=== PATIENT | male | born 1980 | race African-American/Black ===

== ENCOUNTER 2019-06-26 03:52 | Emergency (ER) | payer MEDICAID ==
[~2019-06-26] VITALS: Ht 188 cm; Wt 77.1 kg
--- NOTE | 2019-06-26 04:09 | NUR ---
ED Nurse Note: pt presents to ED c/o shaking and tremors. pt reports that he took 2 x 5mg of melatonin and a norco that had been prescribed to him several years ago from a shoulder injury. pt states that he is worried that he will fall asleep and not wake up. he is reporting shaking and tremors. pt states he took the meds around 0100 this morning
[2019-06-26 04:11] VITALS: BP 135/82
--- NOTE | 2019-06-26 04:22 | Emergency Room Report ---
History of Present Illness General Chief Complaint: General Complaint Source: Patient Present Illness HPI 38-year-old male presents with acute ingestion of Dixmont 5 mg with 10 mg of melatonin, since then he has been feeling like if he were to go to sleep he will wake up severity is moderate, constant he denies any chest pain or shortness of breath no family history of cardiac disease patient feels nausea and is very worried that if he were to close his eyes he would not wake up. Patient states he is also a little shaky he is worried about the drug to drug interaction. He ingested the Dixmont and melatonin at approximately 1 AM Allergies: Coded Allergies: POLLEN EXTRACTS (Verified Allergy, Unknown, 06/26/19) Patient History Past Medical History: see triage record Reviewed Nursing Documentation: PMH: Agreed; PSxH: Agreed Nursing Documentation-PMH Past Medical History: No Stated History Review of Systems All Other Systems: negative except mentioned in HPI Physical Exam Vital Signs Date Time Temp Pulse Resp B/P (MAP) Pulse Ox O2 Delivery O2 Flow Rate FiO2 06/26/19 03:57 97.3 62 16 135/82 (99) 96 Room Air Sp02 EP Interpretation: reviewed, normal General Appearance: well appearing, no apparent distress, alert Head: normocephalic, atraumatic Eyes: bilateral eye PERRL, bilateral eye EOMI ENT: uvula midline, moist mucus membranes Neck: supple, thyroid normal, supple/symm/no masses Respiratory: lungs clear, no respiratory distress, no retraction, no accessory muscle use Cardiovascular #1: normal peripheral pulses, regular rate, rhythm, no edema, no gallop, no murmur Gastrointestinal: non tender, soft, no guarding, no rebound Musculoskeletal: normal inspection Neurologic: alert, oriented x3 Psychiatric: anxious Skin: no rash, warm/dry Medical Decision Making Diagnostic Impression: Primary Impression: Drug-drug interaction ER Course 38-year-old male presents with most likely a drug to drug interaction between melatonin and Dixmont, with ingestion approximately at 1 AM, no acute indications for reversal, patient shows no signs of respiratory depression, additionally patient was counseled that we would be more than willing to place him on the hollock maker for monitoring and if patient want to close his eyes and fall asleep to make sure he does not during that episode patient refused stating that you are not doing anything for me. I stated that we can place him on the hollock maker to make sure that if he were to close his eyes nothing would happen. Counseled patient patient states he does not want to do that additionally patient states he want something for the nausea associated with the Dixmont. Patient was offered Zofran. Patient was observed for an hour without any acute processes occurring patient was reassured patient most likely had a drug interaction Disposition home with return precautions Last Vital Signs Date Time Temp Pulse Resp B/P (MAP) Pulse Ox O2 Delivery O2 Flow Rate FiO2 06/26/19 04:11 62 16 Room Air 06/26/19 04:11 97.3 135/82 96 Disposition: HOME, SELF-CARE Condition: Stable Referrals: [facility] Patient Instructions: Drug Toxicity Additional Instructions: The patient was provided with discharge instructions, notified to follow-up with a primary care doctor and or specialist in the next 24-48 hours, and to return to the ED if they have worsening of their symptoms. Please note that this report is being documented using [employer] technology. This can lead to erroneous entry secondary to incorrect interpretation by the dictating instrument. Leo Zarate MD Jun 26, 2019 04:22
[2019-06-26] MEDS ORDERED: Ondansetron ODT 8mg tab ORAL ONE (04:30)
--- NOTE | 2019-06-26 04:40 | NUR ---
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 will continue to closely watch pt
[2019-06-26 05:20] VITALS: BP 143/83
--- NOTE | 2019-06-26 05:20 | NUR ---
ER DISCHARGE NOTE: Patient is cleared to be discharged per ERMD, pt is aox4, on room air, with stable vital signs. pt and mother were given dc instructions, both verbalized understanding of teachings. pt id band removed without complications. pt is able to ambulate with steady gait. pt took all belongings.
[2019-06-28] MEDS ORDERED: ZITHROMAX250 MG ORAL (16:40)
[2019-06-28] MEDS ORDERED: VENTOLIN HFA18 GM INH (16:40)
[2019-06-28] MEDS ORDERED: TAMIFLU75 MG ORAL (16:40)
[2019-06-28] MEDS ORDERED: GUAIFENESI100 MG/5 M ORAL (16:40)
== END 2019-06-26 05:20 | disposition home or self-care (01) ==
LOC: EMR 04:03
DX: F41.9 Anxiety disorder, unspecified (principal); T39.1X5A Adverse effect of 4-Aminophenol derivatives, initial encounter; T45.0X5A Adverse effect of antiallergic and antiemetic drugs, initial encounter; Y92.9 Unspecified place or not applicable; Z91.09 Other allergy status, other than to drugs and biological substances
CPT/HCPCS: Q0162; Z7502; 99282

== ENCOUNTER → 2019-06-28 | Emergency (ER) | payer MEDICAID, OTHER ==
[~2019-06-28] VITALS: Ht 188 cm; Wt 105.2 kg
[~2019-06-28] MED LIST: GUAIFENESI100 MG/5 M ORAL; PREDNISONE20 MG ORAL; TAMIFLU75 MG ORAL; VENTOLIN HFA18 GM INH; ZITHROMAX250 MG ORAL
--- NOTE | 2019-06-28 16:28 | NUR ---
ED Nurse Note: pt. came with flu like symptoms chest congestion since yesterday, temp 101.5. Placed on chair. VSS, on RA.
--- NOTE | 2019-06-28 16:39 | Emergency Room Report ---
History of Present Illness General Chief Complaint: Flu Like Symptoms Source: Patient Present Illness HPI 38-year-old male with no significant past medical history here complaining of 1 day of body aches, fever and chills, and minor cough. Complains of minimal abdominal pain and few bouts of nonbloody diarrhea and feeling nauseated however denies vomiting. Denies blood in stool. Denies recent travel. Patient appears to have a temperature of 101 F. Also complains of 1 month of intermittent cough and congestion as well as wheezing and feeling like he hears crackling in his chest. Denies tobacco smoke, weeping, and marijuana use. Has not taken medication for symptom relief. Chest pain, shortness of breath, palpitation, headache and dizziness Allergies: Coded Allergies: POLLEN EXTRACTS (Verified Allergy, Unknown, 06/26/19) Patient History Past Medical History: see triage record Past Surgical History: unable to obtain Pertinent Family History: none Immunizations: UTD Reviewed Nursing Documentation: PMH: Agreed; PSxH: Agreed Nursing Documentation-PMH Past Medical History: No Stated History Review of Systems All Other Systems: negative except mentioned in HPI Physical Exam Vital Signs Date Time Temp Pulse Resp B/P (MAP) Pulse Ox O2 Delivery O2 Flow Rate FiO2 06/28/19 16:22 101.5 95 17 137/73 (94) 99 Room Air Sp02 EP Interpretation: reviewed, normal General Appearance: no apparent distress, alert, GCS 15, non-toxic Head: normocephalic, atraumatic Eyes: bilateral eye normal inspection, bilateral eye PERRL ENT: hearing grossly normal, normal pharynx, no angioedema, normal voice, nasal congestion Neck: full range of motion, supple, thyroid normal, no meningismus, supple/symm /no masses Respiratory: chest non-tender, lungs clear, normal breath sounds, no rhonchi, no respiratory distress, no retraction, no accessory muscle use, no wheezing, speaking full sentences Cardiovascular #1: regular rate, rhythm, no edema, no murmur Gastrointestinal: non tender, soft, no mass Rectal: deferred Genitourinary: no CVA tenderness Musculoskeletal: back normal Neurologic: alert, motor strength/tone normal, oriented x3, sensory intact, responsive, speech normal Psychiatric: judgement/insight normal, memory normal, mood/affect normal, no suicidal/homicidal ideation Skin: no rash Lymphatic: no adenopathy Medical Decision Making PA Attestation All diagnoses and treatment plans were reviewed and discussed with my supervising physician Dr. Oconnor Diagnostic Impression: Primary Impression: Influenza-like symptoms Additional Impression: Bronchitis ER Course 38-year-old male with no significant past medical history here complaining of 1 day of body aches, fever and chills, and minor cough. Complains of minimal abdominal pain and few bouts of nonbloody diarrhea and feeling nauseated however denies vomiting. Denies blood in stool. Denies recent travel. Patient appears to have a temperature of 101 F. Also complains of 1 month of intermittent cough and congestion as well as wheezing and feeling like he hears crackling in his chest. Denies tobacco smoke, weeping, and marijuana use. Has not taken medication for symptom relief. Chest pain, shortness of breath, palpitation, headache and dizziness Ddx considered but are not limited to: Strep pharyngitis, influenza, bronchitis , PNA, URI viral, bacterial bronchitis Vital signs: are WNL, pt. is febrile H&PE are most consistent with: Influenza-like symptoms, bacterial bronchitis to duration of symptoms ORDERS: Tamiflu, azithromycin, guaifenesin, albuterol ED INTERVENTIONS: None required at this time. DISCHARGE: At this time pt. is stable for d/c to home. Will provide printed patient care instructions, and any necessary prescriptions. Care plan and follow up instructions have been discussed with the patient prior to discharge. At this time no flu swab needed as patient has a clinical presentation of flu however flu is a virus and improved on its own without the need of Tamiflu regardless. Take medication as directed, follow-up with your primary care provider, if worsening symptoms return to emergency room. At this time no chest x-ray necessary as lungs are clear to auscultation Last Vital Signs Date Time Temp Pulse Resp B/P (MAP) Pulse Ox O2 Delivery O2 Flow Rate FiO2 06/28/19 16:22 101.5 95 17 137/73 (94) 99 Room Air Disposition: HOME, SELF-CARE Condition: Stable Scripts Albuterol Sulfate (VENTOLIN HFA) 18 Gm Hfa.aer.ad 2 PUFFS INH EVERY 6 HOURS, #18 GM 0 Refills Prov: Babita Dorman 06/28/19 Guaifenesin* (GUAIFENESIN) 100 Mg/5 Ml Liquid 5 ML ORAL Q6H, #120 ML 0 Refills Prov: Babita Dorman 06/28/19 Azithromycin* (ZITHROMAX*) 250 Mg Tablet 250 MG ORAL DAILY, #6 TAB 0 Refills Take two tables once daily for 1 day, then one tablet once daily for 4 days. Prov: Babita Dorman 06/28/19 Oseltamivir Phosphate (Tamiflu) 75 Mg Capsule 75 MG ORAL TWICE A DAY for 5 Days, #10 CAP Prov: Babita Dorman 06/28/19 Patient Instructions: Acute Bronchitis, [id number] Additional Instructions: Take medication as directed, follow-up with your primary care provider, if worsening symptoms return to the emergency room. Keep a brat diet consisted of bread banana, rice, applesauce, piece of toast. Avoid eating dairy, red meat, drinking alcohol, tobacco smoke Babita Dorman Jun 28, 2019 16:39
[2019-06-28 16:47] VITALS: BP 137/73
--- NOTE | 2019-06-28 16:47 | NUR ---
ER DISCHARGE NOTE: Pt is cleared to be discharge per ERMD,. Pt is AOx4, on RA, VSS. pt was given dc and prescription instructions, pt was able to verbalize understanding, pt id band removed. pt is able to ambulate with steady gait. Pt left ER with all belongings.
== END | disposition home or self-care (01) ==
LOC: EMR 16:39
DX: J20.9 Acute bronchitis, unspecified (principal); R10.9 Unspecified abdominal pain
CPT/HCPCS: 99282

== ENCOUNTER → 2019-07-27 | Emergency (ER) | payer OTHER ==
[~2019-07-27] VITALS: Ht 185.4 cm; Wt 102.1 kg
[~2019-07-27] MED LIST changes: +TRIAMCINOLONE A15 G2 TP
[2019-07-27 02:25] VITALS: BP 140/87
--- NOTE | 2019-07-27 02:25 | NUR ---
ED Nurse Note: Patient walked in to ED c/o difficulty sleeping last night. Stated he took "skinny sleep" pill to make him feel relax. Patient reports acid reflux and pressure on his head. Patient presented anxious, AAO x4, VSS at this time.
--- NOTE | 2019-07-27 03:18 | Emergency Room Report ---
History of Present Illness General Chief Complaint: General Complaint Source: Patient Present Illness HPI Disclaimer: Please note that this report is being documented using [employer] technology. This can lead to erroneous entry secondary to incorrect interpretation by the dictating instrument. HPI: This is a otherwise healthy 38-year-old male presenting for evaluation of insomnia. The patient states he has had difficulty sleeping today. Earlier today he felt a tickle in his throat and thought he might be getting sick and therefore drank some cough syrup. This resolved the symptoms. He is also complaining some nasal congestion and took Claritin. He still had difficulty sleeping and took some melatonin prior to bed. 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 Also there may be a stimulant that he does not know about in this formulation. He thought he was "too sleepy" and that if he fell asleep he may not wake up again. Concerned over this and the multiple medications he took he presented to the emergency department. He states that he has no thoughts of hurting himself and this was not intentional rather just hoping to sleep. Denies any other symptoms at this time. Denies chest pain, palpitations, shortness of breath. Does note some increasing acid reflux symptoms. Denies abdominal pain , vomiting, diarrhea, dysuria. PMH: Denies PSH: Denies Allergies: Denies Social Hx: Denies Allergies: Coded Allergies: POLLEN EXTRACTS (Verified Allergy, Unknown, 06/26/19) Nursing Documentation-PMH Hx Asthma: Yes Review of Systems All Other Systems: negative except mentioned in HPI Physical Exam Vital Signs Date Time Temp Pulse Resp B/P (MAP) Pulse Ox O2 Delivery O2 Flow Rate FiO2 07/27/19 02:18 97.3 72 19 140/87 (104) 95 General: Awake and alert, no acute distress HEENT: NC/AT. EOMI. injected sclera bilaterally Cardiovascular: RRR. S1 and S2 normal. No murmur appreciated Resp: Normal work of breathing. No cough, wheezing or crackles appreciated Abdomen: Abdomen is soft, nondistended. Nontender Skin: Intact. No abrasions, laceration or rash over the exposed skin MSK: Normal tone and bulk. Moving all extremities. No obvious deformity. Neuro: Awake and alert. Mentating appropriately. Anxious appearing Medical Decision Making Diagnostic Impression: Primary Impression: Insomnia Additional Impression: Rash ER Course 38-year-old male presents for evaluation of difficulty sleeping. He is recently ingested multiple antihistamines as well as melatonin and taking over- the-counter supplements which may be causing his poor sleep. He thought he might be too sedated and concerned that he may not wake up if he fell asleep he wanted to come get checked out in the emergency department. I provided reassurance however he remains very anxious. Will allow him to sleep while monitored for some time and then discharge. Do not believe he requires emergent labs or imaging at this time. He can follow-up with his PMD regarding insomnia. Reevaluation Time: 04:07 Last Vital Signs Date Time Temp Pulse Resp B/P (MAP) Pulse Ox O2 Delivery O2 Flow Rate FiO2 07/27/19 02:18 97.3 72 19 140/87 (104) 95 Reevaluation Impression Patient reports feeling better after laying down for a little while. He is also requesting a cream, triamcinolone 1%, for a atopic dermatitis appearing looking rash over the left elbow. He states it helped him before. I will refill this medication. He should follow-up with his PMD. I counseled her that the herbal supplements while they are [id number] not regulated and they should be careful as they have many ingredients in them that may interact with his system and/or other medications. 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 Patient be discharged home to follow-up on an outpatient basis. He understands and agrees with treat plan Disposition: HOME, SELF-CARE Condition: Stable Scripts Triamcinolone Acetonide (Triamcinolone Acetonide 0.1% Oint*) 15 Gm Oint...g. 0 TP NEEDED for 5 Days, #15 GM Prov: Deangelo Oconnor MD 07/27/19 Referrals: [facility] (PCP) Deangelo Oconnor MD Jul 27, 2019 03:18
== END | disposition home or self-care (01) ==
LOC: EMR 02:35
DX: G47.00 Insomnia, unspecified (principal); R21 Rash and other nonspecific skin eruption
CPT/HCPCS: 99282

== ENCOUNTER 2019-09-07 14:07 | Emergency (ER) | payer OTHER ==
[~2019-09-07] VITALS: Ht 188 cm; Wt 104.3 kg
--- NOTE | 2019-09-07 14:29 | NUR ---
ED Nurse Note: Pt walked in from home in need of medical clearance. States that he works at [employer] and needs med clearance in order to return to work. Pt had a cough and sore throat last week, but feels better now. Respirations even and unlabored on room air.
[2019-09-07 14:30] VITALS: BP 160/105
[2019-09-07 15:00] VITALS: BP 154/97
--- NOTE | 2019-09-07 15:00 | NUR ---
ER DISCHARGE NOTE: Patient is cleared to be discharged per ERMD, pt is aox4, on room air, with stable vital signs as documented. pt was given dc instructions and was able to verbalize understanding, pt id band removed. pt is able to ambulate with steady gait. pt took all belongings.
--- NOTE | 2019-09-07 15:52 | Emergency Room Report ---
History of Present Illness General Chief Complaint: Medical Clearance Source: Patient Present Illness HPI 38-year-old male presents ED for evaluation. Patient states that since last week he has had upper respiratory symptoms. Runny nose and congestion. No fevers or chills. No body aches. No cough. No shortness of breath. States that he has been self isolating for the last 5 days but was asked by his work to get a medical clearance. States he feels fine now. Has no symptoms. Denies recent travel. No other aggravating relieving factors. Denies any other associated symptoms Allergies: Coded Allergies: POLLEN EXTRACTS (Verified Allergy, Unknown, 06/26/19) COVID-19 Screening Contact w/high risk pt: No Recent Travel to affected area: No Experienced COVID-19 symptoms?: No Patient History Past Medical History: asthma Past Surgical History: none Pertinent Family History: none Social History: Denies: smoking, alcohol use, drug use Immunizations: UTD Reviewed Nursing Documentation: PMH: Agreed; PSxH: Agreed Nursing Documentation-PMH Hx Asthma: Yes Review of Systems All Other Systems: negative except mentioned in HPI Physical Exam Vital Signs Date Time Temp Pulse Resp B/P (MAP) Pulse Ox O2 Delivery O2 Flow Rate FiO2 09/07/19 14:21 97.9 73 18 160/105 (123) 99 Room Air Sp02 EP Interpretation: reviewed, normal General Appearance: no apparent distress, alert, GCS 15, non-toxic Head: normocephalic, atraumatic Eyes: bilateral eye normal inspection, bilateral eye PERRL ENT: hearing grossly normal, normal pharynx, no angioedema, normal voice Neck: full range of motion, supple/symm/no masses Respiratory: chest non-tender, lungs clear, normal breath sounds, speaking full sentences Cardiovascular #1: regular rate, rhythm, no edema Cardiovascular #2: 2+ carotid (R), 2+ carotid (L), 2+ radial (R), 2+ radial (L) , 2+ dorsalis pedis (R), 2+ dorsalis pedis (L) Gastrointestinal: normal bowel sounds, non tender, soft, non-distended, no guarding, no rebound Rectal: deferred Genitourinary: normal inspection, no CVA tenderness Musculoskeletal: back normal, normal range of motion, gait/station normal, non- tender Neurologic: alert, motor strength/tone normal, oriented x3, sensory intact, responsive, speech normal Psychiatric: judgement/insight normal, memory normal, mood/affect normal, no suicidal/homicidal ideation Reflexes: 3+ bicep (R), 3+ bicep (L), 3+ tricep (R), 3+ tricep (L), 3+ knee (R) , 3+ knee (L) Lymphatic: no adenopathy Medical Decision Making Diagnostic Impression: Primary Impression: Upper respiratory infection Qualified Codes: J06.9 - Acute upper respiratory infection, unspecified ER Course Hospital Course 38 yo M presents to ED c/o runny nose, congestion last week. no symptoms now Differential diagnoses include: URI, pharyngitis, otitis media, asthma Clinical course Patient placed on stretcher. After initial history, physical exam reveals a male in no acute distress. Bilateral TM unremarkable. No pharyngeal erythema. No tonsillar exudates. No lymphadenopathy. lungs clear. abdomen soft. Discussed findings with patient. We discussed the concern for coronavirus given patient's contact in the hospital. Patient is asymptomatic at this time. No fever. No cough. No shortness of breath. I explained that patient can return to work if he is asymptomatic and is given proper PPE. Patient agrees. Safe for discharge for close outpatient follow-up Diagnosis - URI Stable and discharged home. Instructed to followup with PMD. Return to ED if symptoms recur or worsen Last Vital Signs Date Time Temp Pulse Resp B/P (MAP) Pulse Ox O2 Delivery O2 Flow Rate FiO2 09/07/19 15:00 98.0 79 18 154/97 99 Room Air Status: improved Disposition: HOME, SELF-CARE Condition: Stable Departure Forms: Return to Work Return to Work Date: Sep 08, 2019 Work Restrictions: None Patient Instructions: Upper Respiratory Infection, Adult, [id number] Additional Instructions: your exam was unremarkable. you are cleared to work as long as you do not have 1 ) fever 2)cough 3) SOB. and you need to be provided with adequate PPE Kade Cerrato MD Sep 07, 2019 15:52
== END 2019-09-07 15:00 | disposition home or self-care (01) ==
LOC: EMR 14:28
DX: J06.9 Acute upper respiratory infection, unspecified (principal)
CPT/HCPCS: 99281

== ENCOUNTER 2020-04-18 19:33 | Emergency (ER) | payer MEDICAID, OTHER ==
[~2020-04-18] VITALS: Ht 185.4 cm; Wt 104.3 kg
--- NOTE | 2020-04-18 19:52 | NUR ---
ED Nurse Note: pt presents to ED c/o lower back pain onset today. pt reports that he was bending over to put on his shoe and heard a "pop" followed by severe pain. it now hurts to bend over or move from side to side.
[2020-04-18 19:53] VITALS: BP 131/86
[2020-04-18] MEDS ORDERED: Ketorolac 60mg Inj IM ONE (20:00)
--- NOTE | 2020-04-18 20:12 | Emergency Room Report ---
History of Present Illness General Chief Complaint: Back Injury Source: Patient Present Illness HPI This patient states that around noon today he was bending over to put on his shoes when he suddenly felt a sharp pain in the middle of his low back. He states that since that time if he even slightly bends to his left side he will get a sudden severe and sharp shooting pain on the right side of his low back shooting up his back into his right hip. He states that the pain is severe and unbearable. He denies weakness. He denies tingling or numbness. He denies loss of bowel or bladder control. He denies recent illness. Denies fever or chills. He denies headache or neck pain. He denies previous episodes, although, he states that he has occasionally over the past year had "back pro blems." He does workout regularly. He admits that he has not been stretching as much as he typically does. Allergies: Coded Allergies: IODINE (Verified Allergy, Unknown, 04/18/20) POLLEN EXTRACTS (Verified Allergy, Unknown, 04/18/20) COVID-19 Screening Contact w/high risk pt: No Recent Travel to affected area: No Experienced COVID-19 symptoms?: No COVID-19 Testing performed CURRICULUM AND INSTRUCTION DIRECTOR: No Patient History Past Medical History: see triage record, HTN, asthma, other - Pre-DM Social History: Denies: smoking, alcohol use, drug use Reviewed Nursing Documentation: PMH: Agreed; PSxH: Agreed Nursing Documentation-PM Past Medical History: No History, Except For Hx Hypertension: Yes Hx Asthma: Yes Review of Systems All Other Systems: negative except mentioned in HPI Physical Exam Vital Signs Date Time Temp Pulse Resp B/P (MAP) Pulse Ox O2 Delivery O2 Flow Rate FiO2 04/18/20 19:35 97.9 76 18 131/86 (101) 95 Room Air Sp02 EP Interpretation: reviewed, normal General Appearance: no apparent distress, alert, GCS 15, non-toxic Head: normocephalic, atraumatic Eyes: bilateral eye normal inspection ENT: hearing grossly normal, normal pharynx, no angioedema, normal voice Neck: normal inspection, full range of motion, supple/symm/no masses Respiratory: no respiratory distress, no retraction, no accessory muscle use, speaking full sentences Cardiovascular #1: no edema Gastrointestinal: normal inspection Rectal: deferred Musculoskeletal: normal inspection, other - Antalgic Gait. +pain in R. Sacral region. Not reproducible with palpation, but is reproducible with certain positions, archana. L. lateral flexion. Neurologic: alert, motor strength/tone normal, oriented x3, sensory intact, responsive, speech normal Psychiatric: judgement/insight normal, memory normal, mood/affect normal, no suicidal/homicidal ideation Skin: no rash, normal color Medical Decision Making Diagnostic Impression: Primary Impression: Low back strain ER Course This patient has a clinical presentation consistent with mechanical back pain and low back strain. There are no red flags on physical exam. The patient denies any concerning features such as trauma, fevers, night sweats, history of malignancy, pain worse at night, IV drug abuse, urinary/fecal incontinence or retention, focal weakness or change in sensation, or refractory pain. Given these pertinent negatives in the history and physical exam an emergent cause of the back pain such as epidural abscess, metastasis to bone, cauda equina syndrome, and fracture is less likely. I also doubt emergent cardiovascular cause of back pain such as aortic dissection a ruptured abdominal aortic aneurysm given patient with equal pulses in all 4 extremities with no diastolic murmur or pulsatile abdominal mass. I did obtain a lumbar spine x-ray which showed no acute findings. Likely the patient does have some underlying degenerative disc disease that is causing radiculopathy and muscle spasm. The patient was given Toradol, Valium, Lidoderm patch and instructed on appropriate stretching exercises and given rehab exercises. The patient was counseled that, though unlikely, the possibility of an emergent cause of back pain may still be present and that the patient should return immediately if symptoms persist or worsen. The symptoms are reproducible with movement. Patient had a benign e valuation and neurologic examination. No emergency etiology was identified. Other X-Ray Diagnostic Results Other X-Ray Diagnostic Results : X-Ray ordered: L-spine xray # of Views/Limited Vs Complete: Complete Indication: Pain EP Interpretation: Yes Interpretation: no dislocation, no soft tissue swelling, no fractures Impression: No acute disease Electronically Signed by: Ambika Wilson DO Last Vital Signs Date Time Temp Pulse Resp B/P (MAP) Pulse Ox O2 Delivery O2 Flow Rate FiO2 04/18/20 19:53 97.9 87 18 131/86 95 Room Air Status: improved Disposition: HOME, SELF-CARE Referrals: NON PHYSICIAN (PCP) Patient Instructions: Back Injury Prevention Ambika Wilson DO Apr 18, 2020 20:12
--- NOTE | 2020-04-18 20:15 | NUR ---
ED Nurse Note: pt was able to call his father who will pick him up, pt will not be driving home
--- NOTE | 2020-04-18 20:28 | NUR ---
ED Nurse Note: pt able to amulate to radiology with steady gait
--- NOTE | 2020-04-18 20:36 | NUR ---
ED Nurse Note: pt returned from radiology
--- NOTE | 2020-04-18 20:49 | Diagnostic Imaging Report ---
EXAM: XR Lumbosacral Spine, 2 or 3 Views CLINICAL HISTORY: PAIN TECHNIQUE: Frontal and lateral views of the lumbar spine and sacrum. COMPARISON: No previous study. FINDINGS: Vertebrae: Gentle levoscoliosis of the lumbar spine. Osteopenia. No acute fracture. Normal alignment. Sacrum/coccyx: Mild osteoarthritic changes about the sacrum electrons. Visualized sacrum and coccyx and lower thoracic spine are unremarkable. No acute fracture. Disc spaces: Mild degenerative disc disease. Soft tissues: Unremarkable. IMPRESSION: 1. Osteopenia. 2. Mild degenerative disc disease. 3. Osteoarthritic changes about the sacroiliac joints.
[2020-04-18] MEDS ORDERED: TRAMADOL HCL50 MG ORAL (20:56)
[2020-04-18] MEDS ORDERED: IBUPROFEN800 MG ORAL (20:56)
[2020-04-18] MEDS ORDERED: CYCLOBENZAPRINE10 MG ORAL (20:56)
[2020-04-18 21:10] VITALS: BP 131/86
--- NOTE | 2020-04-18 21:10 | NUR ---
ER DISCHARGE NOTE: Patient is cleared to be discharged per ERMD, pt is aox4, on room air, with stable vital signs. pt was given dc and prescription instructions, pt was able to verbalize understanding, pt id band removed without complications. pt is able to ambulate with steady gait. pt took all belongings.
== END 2020-04-18 21:10 | disposition home or self-care (01) ==
LOC: EMR 19:51
DX: S39.012A Strain of muscle, fascia and tendon of lower back, initial encounter (principal); X50.1XXA Overexertion from prolonged static or awkward postures, initial encounter; Y92.9 Unspecified place or not applicable; Z91.041 Radiographic dye allergy status; I10 Essential (primary) hypertension; R73.03 Prediabetes
CPT/HCPCS: 72020; 96372; Z7502; 99283

== ENCOUNTER 2020-04-29 16:49 | Emergency (ER) | payer MEDICAID ==
[~2020-04-29] VITALS: Ht 188 cm; Wt 106.6 kg
[~2020-04-29 16:49] MED LIST changes: +CYCLOBENZAPRINE10 MG ORAL; +IBUPROFEN800 MG ORAL; +TRAMADOL HCL50 MG ORAL
--- NOTE | 2020-04-29 17:07 | Emergency Room Report ---
History of Present Illness General Chief Complaint: COVID-19 positive, cough Source: Patient Present Illness HPI Disclaimer: Please note that this report is being documented using DRAGON technology. This can lead to erroneous entry secondary to incorrect interpretation by the dictating instrument. HPI: 39-year-old male history of asthma presents for evaluation of cough. Patient tested positive for COVID-19 today and outpatient testing. He was informed of the results approximate 1 hour ago and came to the ED requesting antibiotics. He states he has had a nonproductive cough for the past 5 days, myalgias, sore throat, nasal congestion. Reported some wheezing improved with his albuterol inhaler. No recent steroid use. Denies fever, chills. Reports nausea but no vomiting. Reports loose stools. Denies dysuria or hematuria. PMH: Asthma PSH: Reviewed Allergies: Iodine, seasonal Social Hx: Reviewed Allergies: Coded Allergies: IODINE (Verified Allergy, Unknown, 04/18/20) POLLEN EXTRACTS (Verified Allergy, Unknown, 04/18/20) COVID-19 Screening Contact w/high risk pt: No Recent Travel to affected area: No Experienced COVID-19 symptoms?: No Nursing Documentation-PMH Hx Hypertension: Yes Hx Asthma: Yes Review of Systems All Other Systems: negative except mentioned in HPI Physical Exam Vital Signs Date Time Temp Pulse Resp B/P (MAP) Pulse Ox O2 Delivery O2 Flow Rate FiO2 04/29/20 17:09 99.9 93 20 138/93 97 Room Air General: Awake and alert, no acute distress HEENT: NC/AT. EOMI. Cardiovascular: RRR. S1 and S2 normal. No murmur appreciated Resp: Normal work of breathing. No cough, wheezing or crackles appreciated Skin: Intact. No abrasions, laceration or rash over the exposed skin MSK: Normal tone and bulk. Moving all extremities. No obvious deformity. Neuro: Awake and alert. Mentating appropriately. Medical Decision Making Diagnostic Impression: Primary Impression: COVID-19 ER Course 39-year-old male presenting for evaluation of myalgias, sore throat, cough. Tested and returned positive for COVID-19 earlier today. He arrives afebrile, saturating 100%, nonlabored breathing, no wheezing. Chest x-ray does not show acute infiltrate, pneumothorax, other abnormalities. Patient will be started on azithromycin given his asthma and given symptomatic medications. Instructed to avoid NSAIDs and to quarantine for 14 days. He will then obtain a second Covid test to evaluate for viral clearance. He is instructed to return to the ER with new or worsening symptoms and to follow CDC guidelines regarding quarantining and contact precautions. He understands and agrees with this treatment plan will be discharged home. Chest X-Ray Diagnostic Results Chest X-Ray Diagnostic Results : Chest X-Ray Ordered: Yes # of Views/Limited/Complete: 1 View Indication: Shortness of Breath EP Interpretation: Yes Interpretation: no consolidation, no effusion, no pneumothorax Impression: No acute disease Electronically Signed by: Electronically signed by Dr. Deangelo Oconnor MD Disposition: HOME, SELF-CARE Condition: Stable Scripts Benzonatate* (TESSALON PERLE*) 100 Mg Capsule 100 MG ORAL THREE TIMES A DAY for 10 Days, #30 PERLE Prov: Deangelo Oconnor MD 04/29/20 Ondansetron Odt* (ZOFRAN ODT*) 4 Mg Tab.rapdis 4 MG BC EVERY 8 HOURS PRN for Nausea & Vomiting, #10 TAB 0 Refills Prov: Deangelo Oconnor MD 04/29/20 Acetaminophen* (TYLENOL EXTRA STRENGTH*) 500 Mg Tablet 500 MG ORAL Q8H PRN for Prn Headache/Temp > 101, #30 TAB 0 Refills Prov: Deangelo Oconnor MD 04/29/20 Azithromycin* (ZITHROMAX*) 250 Mg Tablet 250 MG ORAL DAILY, #6 TAB 0 Refills Take two tables once daily for 1 day, then one tablet once daily for 4 days. Prov: Deangelo Oconnor MD 04/29/20 Referrals: [facility] [place] [facility] Patient Instructions: Viral Respiratory Infection Additional Instructions: Call your primary physician as soon as possible to discuss emergency department visit. You may require reevaluation or further testing per your doctor's recommendations. Limit your contact with others as much as possible over the next 14 days. Stay minimum of 6 feet away from others, do not attend large gatherings and clean and disinfect all heavily used surfaces. Obtain another Covid test in 2 weeks to evaluate for viral clearance. Follow CDC guidelines for isolation and infection prevention. If you experience any new or worsening symptoms discussed with your doctor or return to the emergency department for reevaluation. Deangelo Oconnor MD Apr 29, 2020 17:07
[2020-04-29 17:09] VITALS: BP 138/93
--- NOTE | 2020-04-29 17:17 | NUR ---
ED Nurse Note: Pt walked in from home c/o sore throat, SOB, headache, runny nose, cough, diarrhea, and chills since friday. Pt was tested today and came back positive for COVID. AAO x4 and ambulatory.
[2020-04-29] MEDS ORDERED: ONDANSETRON ODT4 MG BC (17:26)
[2020-04-29] MEDS ORDERED: TYLENOL EXTRA500 MG ORAL (17:26)
[2020-04-29] MEDS ORDERED: ZITHROMAX250 MG ORAL (17:26)
[2020-04-29] MEDS ORDERED: TESSALON PERLE100 MG ORAL (17:33)
--- NOTE | 2020-04-29 17:40 | Diagnostic Imaging Report ---
EXAM: XR Chest, 1 View CLINICAL HISTORY: COUGH TECHNIQUE: Frontal view of the chest. COMPARISON: No relevant prior studies available. FINDINGS: Lungs: Unremarkable. No consolidation. Pleural space: No pleural effusion. No pneumothorax. Heart: Unremarkable. No cardiomegaly. Bones/joints: Unremarkable. IMPRESSION: No acute cardiopulmonary abnormality.
--- NOTE | 2020-04-29 17:41 | NUR ---
ED Nurse Note: technical aide at the bed side for CXR.
[2020-04-29 17:49] VITALS: BP 125/80
--- NOTE | 2020-04-29 17:49 | NUR ---
ER DISCHARGE NOTE: Patient is cleared to be discharged per ERMD, pt is aox4, on room air, with stable vital signs. pt was given dc and prescription instructions, pt was able to verbalize understanding, pt id band removed. pt is able to ambulate with steady gait. pt took all belongings.
== END 2020-04-29 19:49 | disposition home or self-care (01) ==
LOC: EMR 17:49
DX: U07.1 COVID-19 (principal); I10 Essential (primary) hypertension; J45.909 Unspecified asthma, uncomplicated; Z88.8 Allergy status to other drugs, medicaments and biological substances; Z91.09 Other allergy status, other than to drugs and biological substances
CPT/HCPCS: 71045; Z7502; 99283